=== PATIENT | male | born 1945 | race Asian ===

== ENCOUNTER 2017-08-22 13:35 | Inpatient (IN) | END 2017-09-10 13:24 | disposition home or self-care (01) | DRG 987 ==

== ENCOUNTER 2018-12-23 15:25 | Emergency (ER) | payer MEDICARE, OTHER ==
[~2018-12-23] VITALS: Ht 170.2 cm; Wt 77.3 kg
[~2018-12-23 15:25] MED LIST: ALLO100T PO; ASC500 PO; ASPI325T29 PO; ATOR10TA65 PO; BICA50TA5 PO; CARV3.1260 PO; CLOB15OI15 TOP; FINA5TAB PO; PRED5DRO20 LEFT EYE; SENN-120 PO; TERA10CA3 PO; TOLT2TAB13 PO
[2018-12-23 15:31] VITALS: Ht 170.2 cm; Wt 77.3 kg
[2018-12-23] MEDS ORDERED: KETOROLAC 30 MG INJ IM STA (16:04)
[2018-12-23] MEDS ORDERED: KETOROLAC 30 MG INJ IV STA (16:11)
--- NOTE | 2018-12-23 16:15 | ERD ---
ER Documentation Chief Complaint Chief Complaint chronic back x 6 months, worse today HPI 73-year-old male presenting to the ED for right lower back pain and blood in urine x2 days. Patient states he suffers from chronic back pain but this morning the pain is different and much worse. Patient rates the pain 5 out of 10 and states that it has been worsening over the last 2 days. Patient has a history of diabetes and high blood pressure is currently taking medications. Patient denies any urinary incontinence, numbness/tingling, muscle weakness, fever chills. ROS All systems reviewed and are negative except as per history of present illness. Medications Home Meds Active Scripts Ciprofloxacin Hcl* (Ciprofloxacin Hcl*) 500 Mg Tablet, 500 MG PO BID for 7 Days, TAB Prov:MICHELL ANN MD 12/23/18 Tolterodine Tartrate* (Detrol*) 2 Mg Tablet, 4 MG PO DAILY for 30 Days, #30 TAB Prov:HANNAH RAO MD 09/09/17 Aspirin (Aspirin Lite-Coat) 325 Mg Tablet, 325 MG PO DAILY for 90 Days, #90 TAB Prov:HANNAH RAO MD 09/09/17 Carvedilol* (Carvedilol*) 3.125 Mg Tablet, 3.125 MG PO BID for 30 Days, #60 TAB Prov:HANNAH RAO MD 09/09/17 Atorvastatin (Atorvastatin) 10 Mg Tablet, 10 MG PO QHS for 30 Days, #30 TAB Prov:HANNAH RAO MD 09/09/17 Bicalutamide* (Casodex*) 50 Mg Tablet, 50 MG PO DAILY for 30 Days, #30 TAB 11 Refills Prov:HANNAH RAO MD 09/09/17 Reported Medications Prednisolone Acetate* (Pred Forte*) 5 Ml Susp, 1 DROP LEFT EYE QID, EA 08/22/17 Terazosin Hcl* (Terazosin Hcl*) 10 Mg Capsule, 10 MG PO HS, CAP 08/22/17 Allopurinol* (Allopurinol*) 100 Mg Tablet, 100 MG PO BID, TAB 08/22/17 Clobetasol Propionate* (Clobetasol Propionate*) 15 Gm Oint, 1 APPLIC TOP BID, #1 TUB 08/22/17 Sennosides* (Senna Lax*) 8.6 Mg Tablet, 2 TAB PO QHS, TAB 08/22/17 Ascorbic Acid (Vitamin C) 500 Mg Tab, 500 MG PO DAILY, TAB 08/22/17 Finasteride* (Proscar*) 5 Mg Tablet, 5 MG PO DAILY, TAB 08/22/17 Discontinued Scripts Tamsulosin Hcl* (Flomax*) 0.4 Mg Cap.er.24h, 0.4 MG PO BID, #30 CAP Prov:KOLTON NAVARRO PA-C 12/23/18 Sulfamethoxazole/Trimethoprim* (Bactrim Ds* Tablet) 1 Each Tablet, 1 TAB PO DAILY, #7 TAB Prov:KOLTON NAVARRO PA-C 12/23/18 Allergies Allergies: Coded Allergies: No Known Allergy (Unverified , 08/25/17) PMhx/Soc History of Surgery: Yes (CARDIAC SURG) Hx Cardiac Disorders: Yes (HTN) Hx Psychiatric Problems: No Hx Miscellaneous Medical Probl: Yes Hx Alcohol Use: No Hx Substance Use: No Hx Tobacco Use: No Smoking Status: Never smoker FmHx Family History: diabetes Physical Exam Vitals Vital Signs Date Temp Pulse Resp B/P (MAP) Pulse Ox O2 O2 Flow FiO2 Time Delivery Rate 12/23/18 65 20 137/84 99 Room Air 20:33 (101) 12/23/18 98.2 75 18 137/61 97 15:31 (86) Physical Exam Const: No acute distress Head: Atraumatic Eyes: Normal Conjunctiva ENT: Normal External Ears, Nose and Mouth. Neck: Full range of motion. No meningismus. Resp: Clear to auscultation bilaterally Cardio: Regular rate and rhythm, no murmurs Abd: Soft, non tender, non distended. Normal bowel sounds Skin: No petechiae or rashes Back: Right side CVA Tenderness, SLR provokes pain in the back on the right flank Ext: No cyanosis, or edema Result Diagram: 12/23/18 1625 12/23/18 1625 Results 24 hrs Laboratory Tests Test 12/23/18 16:24 12/23/18 16:25 12/23/18 19:35 Urine Color YELLOW Urine Clarity CLOUDY Urine pH 5.0 Urine Specific [place] 1.012 Urine Ketones NEGATIVE mg/dL Urine Nitrite NEGATIVE mg/dL Urine Bilirubin NEGATIVE mg/dL Urine Urobilinogen NEGATIVE mg/dL Urine Leukocyte Esterase 3+ Mandy/ul Urine Microscopic RBC 1 /HPF Urine Microscopic WBC > 182 /HPF Urine Bacteria FEW /HPF Urine Hemoglobin 1+ mg/dL Urine Glucose NEGATIVE mg/dL Urine Total Protein NEGATIVE mg/dl Urine Opiates Screen Negative Urine Barbiturates Negative Urine Amphetamines Screen Negative Urine Benzodiazepines Screen Negative Urine Cocaine Screen Negative Urine Cannabinoids Negative White Blood Count 9.0 10^3/ul Red Blood Count 4.22 10^6/ul Hemoglobin 13.2 g/dl Hematocrit 40.1 % Mean Corpuscular Volume 95.0 fl Mean Corpuscular Hemoglobin 31.3 pg Mean Corpuscular 32.9 g/dl Hemoglobin Concent Red Cell Distribution Width 12.1 % Platelet Count 209 10^3/UL Mean Platelet Volume 9.6 fl Immature Granulocytes % 0.300 % Neutrophils % 72.6 % Lymphocytes % 14.8 % Monocytes % 9.0 % Eosinophils % 3.0 % Basophils % 0.3 % Nucleated Red Blood Cells % 0.0 /100WBC Immature Granulocytes # 0.030 10^3/ul Neutrophils # 6.6 10^3/ul Lymphocytes # 1.3 10^3/ul Monocytes # 0.8 10^3/ul Eosinophils # 0.3 10^3/ul Basophils # 0.0 10^3/ul Nucleated Red Blood Cells # 0.0 10^3/ul Prothrombin Time 11.9 Sec Prothrombin Time Ratio 0.9 INR International 0.87 Normalized Ratio Activated Partial Thromboplast 34.5 Sec Time Sodium Level 142 mmol/L Potassium Level 4.9 mmol/L Chloride Level 103 mmol/L Carbon Dioxide Level 29 mmol/L Anion Gap 10 Blood Urea Nitrogen 37 mg/dl Creatinine 1.75 mg/dl Est Glomerular Filtrat mL/min Rate mL/min Glucose Level 99 mg/dl Hemoglobin A1c 5.0 % Calcium Level 9.3 mg/dl Creatine Kinase 58 IU/L Creatine Kinase Index 1.1 Creatinine Kinase MB (Mass) 0.63 ng/ml Troponin I < 0.012 ng/ml Triglycerides Level 230 mg/dl Cholesterol Level 146 mg/dl LDL Cholesterol, Calculated 66 mg/dl HDL Cholesterol 34 mg/dl Cholesterol/HDL Ratio 4.2 RATIO Ethyl Alcohol Level < 10.0 mg/dl Bedside Glucose 113 mg/dL Current Medications Medications Dose Sig/Tara Start Time Status Last (Trade) Ordered Route PRN Stop Time Admin Dose Reason Admin Ketorolac 30 mg ONCE STAT 12/23/18 Cancel Tromethamine IM 16:04 12/23/18 (Toradol) 16:05 Sodium 250 ml @ Q1H ONCE 12/23/18 Cancel Chloride 250 mls/hr IV 16:30 12/23/18 17:29 Sodium 500 ml @ Q1H ONCE 12/23/18 DC 12/23/18 Chloride 500 mls/hr IV 16:30 12/23/18 16:22 17:29 Ketorolac 30 mg ONCE STAT 12/23/18 DC 12/23/18 Tromethamine IV 16:11 12/23/18 16:22 (Toradol) 16:18 1 tab ONCE ONCE 12/23/18 DC 12/23/18 Trimethoprim/ PO 18:00 12/23/18 18:07 18:01 Sulfamethoxaz ole (Bactrim (Ds)) Procedures/MDM ED course: UA, CBC, CMP CT without contrast, Bactrim, code stroke Diagnostic imaging: Read by radiologist Zoltan Coleman MD PROCEDURE: CT abdomen and pelvis without contrast. CLINICAL INDICATION: Back pain. Urolithiasis. Prostate cancer. Bladder cancer. TECHNIQUE: CT scan of the abdomen and pelvis without oral contrast was performed and is reconstructed at 2.5 mm contiguous axial intervals from the dome of the diaphragm to the inferior pubic rami.. The patient was scanned without intravenous contrast. Sagittal and coronal reformatted images were obtained from the axial source images. The calculated radiation dose measures 496 mGy centimeters. The CTDI measures 7.5 mGy. Individualized dose optimization technique was used for the performance of this exam. This included 1. Automated exposure control. 2. Adjustment of the mA and / or kV according to the patient's size. 3. Use of iterative reconstructed technique. DICOM images are available. COMPARISON: CT abdomen pelvis August 30, 2017 FINDINGS: The lung bases are clear of any infiltrate or nodule. No effusion is seen. There are coronary artery calcifications. The patient is post CABG. Noted is cardiomegaly. The liver is of normal size, contour and attenuation with no solid mass or ductal dilatation. There are multiple hepatic cysts, the largest of which is in the inferior aspect of the right lobe of the liver measuring approximately 3 cm in diameter. gallstones are present. No splenic, adrenal or pancreatic abnormalities present. Kidneys are of normal size. No calculus or solid mass Is seen. Parenchymal cyst is again seen in the right kidney. There is moderate to severe left hydroureter nephrosis with thinning of the parenchyma of the left kidney and moderate right hydroureter nephrosis. No ureteral stone is seen. There is diffuse thickening of the wall of the urinary bladder. No discrete mass is seen and no stone is visualized. The prostate is not enlarged and the capsule appears to be intact. There is no aneurysm. Calcified plaque is present in the aorta and iliac arteries. No adenopathy is present. No bowel mass or obstruction is present. There is diverticulosis. The appendix is normal. No phlegmon, ascites or pneumoperitoneum is visualized. Bone metastases are present in the thoracic and lumbar spine and the right acetabulum as seen on recent bone scan. IMPRESSION: Moderate to severe left hydroureter nephrosis with thinning of the parenchyma and moderate right hydroureter nephrosis unchanged since prior study from August 30, 2017. Diffuse bladder wall thickening compatible with chronic bladder outlet obstruction. No discrete bladder mass or evidence of bladder metastases. Normal size prostate without evidence of local invasion but blastic metastatic disease as above. Hepatic cysts. Urolithiasis. Parenchymal cyst right kidney. Diverticulosis. No evidence of diverticulitis or appendicitis. Cardiomegaly. Vascular calcifications. Medications given in ER: Toradol Normal saline Bactrim Patient tolerated medication well with no adverse reactions. Patient reported improvement in pain. Medical decision makin-year-old male presenting to the ED for back pain and hematuria. Physical examination revealed CVA tenderness the right flank, straight leg raise on the right side provoked pain in the same region in his back. Patient's UA indicated the patient had UTI he was given 1 dose of Bactrim in the ED because he recently was treated for UTI [address] scan was unremarkable and showed no changes prior to his last examination. At approximately 19:35 I went to speak with the patient regarding the test results the patient appeared to be confused and altered. Code stroke was called at 1936 and patient was sent for head CT. On physical examination the patient had no slurred speech, no asymmetric symmetry and facial muscles, no pronator drift. The patient just appears to be confused he does not know what year it is he does not know what hospital he is and he does not know how he got here. A bedside glucose check revealed the patient's sugar was 136. The patient knows his name date of and year he was born. Care was handed over to Dr. Lester and the patient was moved to ED 1. Attending Addendum: Patient was initially seen by the PA then care was transferred to dc. Briefly the patient came in for hematuria and back pain. His work-up today showed evidence of hydronephrosis with acute infection. He was treated with antibiotics. However upon discharge, the nurse noted that the patient seemed confused. The patient was evaluated by the PA who consulted with me. I have evaluated the patient at bedside and he seemed somewhat confused but was able to answer some questions appropriately. He had no focal deficits. He had no true a aphasia. However the baseline mental status of the patient was unknown and there were no family members or friends at bedside. For this reason code stroke was activated at 1948. Patient emergently had a CT done which showed old stroke but no acute abnormalities. I consulted with tele-neurology. Const: Well-appearing, pleasant, no apparent distress Head: Atraumatic Eyes: PERRLA, EOMI, no nystagmus ENT: Normal External Ears, Nose and Mouth. Neck: Full range of motion. No meningismus. Resp: Clear to auscultation bilaterally Cardio: Regular rate and rhythm, no murmurs Abd: Soft, non tender, non distended. Normal bowel sounds Skin: No petechiae or rashes Back: No midline or flank tenderness Ext: No cyanosis, or edema Neur: Awake and alert, normal speech, no facial asymmetry, cranial nerves intact. No dysarthria or aphasia. Oriented to place, self, and president. Unable to tell me the date. Strength and sensations intact in all 4 extremities. No pronator drift. Psych: Normal Mood and Affect EKG: Rate/Rhythm: Normal Sinus Rhythm QRS, ST, T-waves: Right bundle branch block, no changes consistent w/ acute ischemia Impression: No evidence of ischemia or arrhythmia MDM: Patient's labs were reviewed as well as his imaging. He does have chronic renal insufficiency which is unchanged from baseline. He has hydronephrosis that has been seen on previous imaging as well. Urinalysis showed evidence of UTI but no significant hematuria. Patient was treated with antibiotics here. He was evaluated by the tele-neurologist who does not believe that his symptoms are consistent with a stroke. He does not recommend TPA. I spoke with the care facility for the patient and it seems he has Alzheimer's dementia at baseline. I let the neurologist know this. I do not feel the patient is having a stroke at this time and I do not believe he requires admission for further work-up. Patient will be discharged with antibiotics for his UTI and will be instructed to return for any worsening symptoms. Critical Care Time: 35 minutes Treatments/Evaluations: Close monitoring and treatment of unstable vital signs, cardiorespiratory, and neurologic status, while maintaining tight balance of fluid, respiratory, and cardiac interventions. This time includes discussing the case with the patient and the patients family. This time does not include all procedures stated elsewhere in this record. This time also includes reviewing old records, labs and radiological studies. This time includes examining and re-examining the patient. Additionally, this time also includes arranging care with admitting and consulting physicians. Departure Diagnosis: Primary Impression: Hematuria Hematuria type: unspecified type Qualified Codes: R31.9 - Hematuria, unspecified Additional Impressions: UTI (urinary tract infection) Urinary tract infection type: acute cystitis Hematuria presence: without hematuria Qualified Codes: N30.00 - Acute cystitis without hematuria Chronic renal insufficiency Chronic kidney disease stage: unspecified stage Qualified Codes: N18.9 - Chronic kidney disease, unspecified Hydronephrosis Hydronephrosis type: unspecified Qualified Codes: N13.30 - Unspecified hydronephrosis Condition: Stable KOLTON NAVARRO PA-C Dec 23, 2018 16:15 MICHELL ANN MD Dec 23, 2018 21:40
[2018-12-23] MEDS ORDERED: SOD CHLORIDE 0.9% 250 ML IV ONE (16:30)
[2018-12-23] MEDS ORDERED: SOD CHLORIDE 0.9% 500 ML IV ONE (16:30)
[2018-12-23] MEDS ORDERED: SULF1TAB31 PO (17:59)
[2018-12-23] MEDS ORDERED: TRIMETHOPRIM/SULFAMETHOX (DS) TAB PO ONE (18:00)
[2018-12-23] MEDS ORDERED: TAMS-14 PO (19:14)
--- NOTE | 2018-12-23 20:24 | STROKE ---
Date/Time of Note Date/Time of Note DATE: 12/23/18 TIME: 20:23 Patient Information General Patient location: emergency Arrival Date Age 73 Gender male Weight 77.27 kg POC Glucose Glucose Result Bedside Glucose - 72 Hours Test 12/23/18 19:35 Bedside Glucose 113 mg/dL (70-220) Vital Signs Vital Signs Vital Signs Date Temp Pulse Resp B/P (MAP) Pulse Ox O2 O2 Flow FiO2 Time Delivery Rate 12/23/18 98.2 75 18 137/61 97 15:31 (86) Patient History Current Medications Allergies: Coded Allergies: No Known Allergy (Unverified , 08/25/17) Labs Coagulation Labs: Coagulation Test 12/23/18 16:25 Activated Partial Thromboplast Time 34.5 Sec (23.0-35.0) History & Physical History of Present Illness 73 M PMH A FIb, CAD LKW 1930 PST with acute confusion in the ED after initial presentation for dysuria. ED MD called care facility and patient has Alz heimer's. Not aphasic in ED. NIH Stroke Scale NIH Stroke Scale [id number] Total Score: [id number] Date/Time Recorded DATE: 12/23/18 TIME: 20:23 Submitted By Marvel Baker t-PA Imaging Review Imaging Reviewed: No Date/Time Imaging Reviewed DATE: 12/23/18 TIME: 20:23 t-PA Administration Recommendation: No Weight 77.27 kg Recommedation submitted by Marvel Baker Reason t-PA not Recommended Not stroke Recommendations Recommendation 73 M with altered mental status in setting of dementia and UTI. No concern for stroke based on history and exam. - F/u [facility] that is pending - No further stroke work-up indicated MARVEL BAKER MD Dec 23, 2018 20:24
[2018-12-23] MEDS ORDERED: CIPR500T4 PO (23:33)
[2018-12-23 23:59] VITALS: BP 155/81; PULSE 62; RESP 18
== END 2018-12-24 00:04 | disposition home or self-care (01) ==
LOC: FTE 15:25 → E/R 12-24 00:04
DX: N30.01 Acute cystitis with hematuria (principal); N18.9 Chronic kidney disease, unspecified; I12.9 Hypertensive chronic kidney disease with stage 1 through stage 4 chronic kidney disease, or unspecified chronic kidney disease; N13.30 Unspecified hydronephrosis; R40.2142 Coma scale, eyes open, spontaneous, at arrival to emergency department; R40.2362 Coma scale, best motor response, obeys commands, at arrival to emergency department; R40.2242 Coma scale, best verbal response, confused conversation, at arrival to emergency department; R94.02 Abnormal brain scan; Z79.82 Long term (current) use of aspirin
CPT/HCPCS: 36415; 70450; 71045; 74176; 80048; 80061; 80307; 81001; 82550; 82553; 82962; 83036; 84484; 85025; 85610; 85730; 87086; 93005; 96361; 96374; 99285; J1885; J7040